=== PATIENT | male | born 1995 | race Caucasian/White ===

== ENCOUNTER 2018-12-24 15:24 | Emergency (ER) | payer BC, OTHER ==
[~2018-12-24] VITALS: Ht 170.2 cm; Wt 90.9 kg
[2018-12-24 15:32] VITALS: BP 152/76; PULSE 82; RESP 18; Ht 170.2 cm; Wt 90.9 kg
[2018-12-24] MEDS ORDERED: IBUPROFEN 600 MG TAB PO ONE (17:30)
[2018-12-24] MEDS ORDERED: IBUP-1542 PO (19:02)
--- NOTE | 2018-12-24 21:49 | ERD ---
ER Documentation Chief Complaint Chief Complaint C/O LEFT KNEE PAIN FOR 6 WEEKS. 1ST WAS CRACKING NOISE, NOW DIFF. TO WALK HPI 23-year-old male presents to the emergency department complaining of cracking in his left knee for the past 2 months. He states that 2 days ago hisKnee "gave out" and had severe pain. Current pain is rated 7/10 in severity and worse with standing and walking. Advil alleviates symptoms. He denies any direct trauma to the knee. He denies any fevers, chills, or other symptoms at this time. ROS All systems reviewed and are negative except as per history of present illness. Medications Home Meds Active Scripts Ibuprofen* (Motrin*) 600 Mg Tab, 600 MG PO Q6, #30 TAB Prov:YOEL NAVARRETE PA-C 12/24/18 Allergies Allergies: Coded Allergies: No Known Allergy (Unverified , 12/24/18) PMhx/Soc Medical and Surgical Hx: pt denies Medical Hx, pt denies Surgical Hx Hx Alcohol Use: Yes (social) Hx Substance Use: No Hx Tobacco Use: No Smoking Status: Never smoker FmHx Family History: No diabetes Physical Exam Vitals Vital Signs Date Temp Pulse Resp B/P (MAP) Pulse Ox O2 O2 Flow FiO2 Time Delivery Rate 12/24/18 98.2 82 18 152/76 98 15:32 (101) Physical Exam Const: No acute distress Head: Atraumatic Eyes: Normal Conjunctiva ENT: Normal External Ears, Nose and Mouth. Neck: Full range of motion. No meningismus. Resp: No respiratory distress. Skin: No petechiae or rashes Ext: Subjective tenderness palpation over the left anterior knee. No obvious joint effusion. Slightly limited range of motion of the left knee secondary to pain. Patient is neurovascularly intact distally to the left lower extremity. Neur: Awake and alert Psych: Normal Mood and Affect Results 24 hrs Current Medications Medications Dose Sig/Karen Start Time Status Last (Trade) Ordered Route PRN Stop Time Admin Dose Reason Admin Ibuprofen 600 mg ONCE ONCE 12/24/18 DC 12/24/18 (Motrin) PO 17:30 17:37 12/24/18 17:31 [place] [id number] Radiology Main Line: [phone] DIAGNOSTIC IMAGING REPORT Patient: KRISTOPHER MONTANO : 1995 Age: 23 Sex: M MR #: [id number] DOS: 12/24/18 0000 Ordering MD: YOEL NAVARRETE PA-C Location: [facility] Room/Bed: PROCEDURE: Left knee x-ray CLINICAL INDICATION: Pain TECHNIQUE: AP, lateral and tunnel views of the left knee were obtained. COMPARISON: None FINDINGS: There is normal mineralization. No acute fracture or dislocation is seen. There are no significant degenerative changes. There is no joint effusion. There is no significant soft tissue swelling. IMPRESSION: Normal x-ray of the left knee. .Niko Beck MD, MD Date Time Electronically viewed and signed by .Niko Beck MD, on 12/24/2018 18:45 .A/ CC: YOEL NAVARRETE PA-C [id number] Procedures/MDM 23-year-old male presents to the emergency department with complaints of left knee pain for the past 2 months, worsening over the past 2 days. X-ray was negative. Patient may have ligamental or tendon injury. No evidence to suggest compartment syndrome, fracture, or other emergencies. Patient will be discharged home with prescriptions for ibuprofen. He was advised to have close follow-up with orthopedic physician and return to the department immediately for any new or worsening or concerning symptoms he understands and agrees with the plan. No evidence of life-threatening or emergent pathology at time of disch arge. Departure Diagnosis: Primary Impression: Knee pain, left Condition: Fair Patient Instructions: Knee Pain, Uncertain Cause Referrals: COMM[facility] YOU HAVE RECEIVED A MEDICAL SCREENING EXAM AND THE RESULTS INDICATE THAT YOU DO NOT HAVE A CONDITION THAT REQUIRES URGENT TREATMENT IN THE EMERGENCY DEPARTMENT. FURTHER EVALUATION AND TREATMENT OF YOUR CONDITION CAN WAIT UNTIL YOU ARE SEEN IN YOUR DOCTORS OFFICE WITHIN THE NEXT 1-2 DAYS. IT IS YOUR RESPONSIBILITY TO MAKE AN APPOINTMENT FOR FOLOW-UP CARE. IF YOU HAVE A PRIMARY DOCTOR --you should call your primary doctor and schedule an appointment IF YOU DO NOT HAVE A PRIMARY DOCTOR YOU CAN CALL OUR PHYSICIAN REFERRAL HOTLINE AT IF YOU CAN NOT AFFORD TO SEE A PHYSICIAN YOU CAN CHOSE FROM THE FOLLOWING [facility] [address] [facility] [address] [facility] [facility] [address] [facility] [address] [facility]. [facility] [address] [facility]. [facility]. [address] Additional Instructions: Call your primary care doctor TOMORROW for an appointment during the next 1-2 days.See the doctor sooner or return here if your condition worsens before your appointment time. YOEL NAVARRETE PA-C Dec 24, 2018 21:49
== END 2018-12-24 19:25 | disposition home or self-care (01) ==
LOC: FTE 15:24
DX: M25.562 Pain in left knee (principal)
CPT/HCPCS: 73562; Z7502; Z7610